=== PATIENT | female | born 1990 | race Hispanic/Latino ===

== ENCOUNTER 2017-11-10 23:13 | Inpatient (IN) | payer OTHER, MEDICAID ==
[~2017-11-10] VITALS: Ht 160 cm; Wt 83.5 kg
[2017-11-10 23:50] LABS: APPEARANCE,URINE Clear (CLEAR); BILIRUBIN,URINE Negative (NEGATIVE); COLOR,URINE Yellow (YELLOW); GLUCOSE, URINE (UA) Negative (NEGATIVE); KETONES,URINE Negative (NEGATIVE); LEUKOCYTE ESTERASE ,URINE Trace (NEGATIVE); NITRATE,URINE Negative (NEGATIVE); OCCULT BLOOD,URINE Negative (NEGATIVE); PH,URINE 6.5 (5.0-8.0); PROTEIN,URINE Negative (NEGATIVE)
[2017-11-11 00:24] LABS: BACTERIA,URINE Rare /HPF (None Seen); MUCUS,URINE Few LPF (None Seen); RBC,URINE None Seen /HPF (0-1); SQUAMOUS EPITHELIAL CELL,UR Moderate /LPF (0-2)
[2017-11-11 01:00] VITALS: BP 129/72
[2017-11-11] MEDS ORDERED: LACTATED RINGERS 1000ML 1,000 ML IV SCH (01:00)
[2017-11-11] MEDS ORDERED: CLINDAMYCIN 900 MG/D5% WATER 50 ML IVPB PRN (01:00)
[2017-11-11 02:23] LABS: HEMATOCRIT 27.3 % (36-48); MEAN CORPUSCULAR HEMOGLOBIN 22.2 pg (27.0-33.0); MEAN CORPUSCULAR HGB CONC 31.8 g/dL (32.0-36.0); MEAN CORPUSCULAR VOLUME 69.7 fL (79-99); NUCLEATED RED BLOOD CELLS 0.4 % (0.0-0.19); PLATELET COUNT (AUTO) 250 K/uL (130-400); RED BLOOD CELL COUNT(AUTO) 3.91 MIL/uL (4.00-5.50); RED CELL DISTRIBUTION WIDTH 18.6 % (11.0-15.5); WHITE BLOOD COUNT (AUTO) 13.5 K/uL (4.8-10.8)
[2017-11-11] MEDS ORDERED: GENTAMICIN SULFATE 240 MG in SODIUM CHLORIDE 0.9% 100 ML IV PRN (04:15)
[2017-11-11] MEDS ORDERED: PREN1TAB89 PO (04:23)
[2017-11-11] MEDS ORDERED: AFRSP NASAL (04:23)
[2017-11-11] MEDS ORDERED: CETI10CA5 PO (04:23)
[2017-11-11] MEDS ORDERED: CLINDAMYCIN PHOSPHATE 150 MG/ML 6ML VIAL IJ ONE (09:00)
[2017-11-11] MEDS ORDERED: OXYTOCIN 10 USP UNITS/ML ONE ×2 (09:36→14:21)
[2017-11-11] MEDS ORDERED: ONDANSETRON HCL 4 MG/2 ML VIAL ONE (09:36)
[2017-11-11] MEDS ORDERED: PHENYLEPHRINE HCL 10 MG/ML 1ML VIAL IV ONE (09:36)
[2017-11-11] MEDS ORDERED: FENTANYL CITRATE PF 50 MCG/1 ML 2ML VIAL ONE (09:41)
[2017-11-11] MEDS ORDERED: DURAMORPH PF1 MG/ML 10ML AMP IV ONE (09:41)
[2017-11-11] MEDS: CALDOLOR 800MG+NS 250ML 250 ML IV SCH ×2 (11:15→19:37)
[2017-11-11] MEDS ORDERED: DiphenhydrAMINE HCL 50 MG/ML VIAL IVP PRN (11:15)
[2017-11-11] MEDS ORDERED: PROMETHAZINE HCL 25 MG/ML 1ML AMPULE IM PRN ×2 (11:15→12:00)
[2017-11-11] MEDS ORDERED: MORPHINE SULFATE 2 MG/ML 1ML SYG IVP PRN (11:15)
[2017-11-11] MEDS ORDERED: ONDANSETRON HCL 4 MG/2 ML 8 MG in SODIUM CHLORIDE 0.9% 50 ML IVP NR (11:15)
[2017-11-11] MEDS ORDERED: NALOXONE HCL 0.4 MG/1 ML ML IVP PRN (11:15)
[2017-11-11] MEDS ORDERED: ONDANSETRON HCL 4 MG/2 ML VIAL IVP PRN ×2 (11:15)
[2017-11-11] MEDS ORDERED: EPHEDRINE SULFATE 50 MG/ML AMPULE IVP PRN (11:15)
[2017-11-11] MEDS ORDERED: METOCLOPRAMIDE 10 MG/2 ML VIAL IVP PRN (11:15)
[2017-11-11] MEDS ORDERED: HYDROCODONE/ACETAMINOPHEN 5/325 MG TAB PO PRN (11:15)
[2017-11-11] MEDS ORDERED: OXYTOCIN-LR 20 UNITS/1000 ML 1,000 ML IV PRN (11:56)
[2017-11-11] MEDS ORDERED: SODIUM CHLORIDE 0.9% 10 ML VIAL IVP PRN (12:00)
[2017-11-11] MEDS ORDERED: DEXTROSE 5 %-0.45 % NACL 1,000 ML IV PRN (12:00)
[2017-11-11] MEDS ORDERED: MEPERIDINE-PF 75 MG/ML SYG IM PRN (12:00)
[2017-11-11 13:53] LABS: RAPID PLASMA REAGIN NONREACTIVE (NONREACTIVE)
[2017-11-11] MEDS ORDERED: LACTATED RINGERS 1000ML 1,000 ML IV ONE (14:21)
[2017-11-11] MEDS ORDERED: MEPERIDINE-PF 25 MG/ML SYG ONE (14:23)
[2017-11-11] MEDS ORDERED: MEPERIDINE-PF 50 MG/ML SYG ONE (14:23)
[2017-11-11 14:49] VITALS: BP 108/73
[2017-11-11] MEDS: HYDROCODONE/ACETAMINOPHEN 5/325 MG TAB PO PRN (17:21)
[2017-11-11 20:00] VITALS: BP 115/71
[2017-11-12] VITALS (7 sets, daily range): BP systolic 110–123; BP diastolic 59–73
[2017-11-12] MEDS: HYDROCODONE/ACETAMINOPHEN 5/325 MG TAB PO PRN ×2 (00:20→07:16)
[2017-11-12] MEDS ORDERED: ACETAMINOPHEN EXTRA STRENGTH 500 MG TABLET PO PRN (02:45)
[2017-11-12] MEDS ORDERED: BISACODYL 10 MG SUPP.RECT RC PRN (02:45)
[2017-11-12] MEDS ORDERED: LANOLIN 30GM OINTMENT TP PRN (02:45)
[2017-11-12] MEDS ORDERED: IBUPROFEN 600 MG TABLET PO PRN (02:45)
[2017-11-12] MEDS ORDERED: SODIUM CHLORIDE 0.9% 10 ML VIAL IVP PRN (02:45)
[2017-11-12] MEDS: CALDOLOR 800MG+NS 250ML 250 ML IV SCH (03:25)
[2017-11-12 06:59] LABS: HEMATOCRIT 24.5 % (36-48); MEAN CORPUSCULAR HEMOGLOBIN 21.7 pg (27.0-33.0); MEAN CORPUSCULAR HGB CONC 31.4 g/dL (32.0-36.0); MEAN CORPUSCULAR VOLUME 68.9 fL (79-99); NUCLEATED RED BLOOD CELLS 0.1 % (0.0-0.19); PLATELET COUNT (AUTO) 234 K/uL (130-400); RED BLOOD CELL COUNT(AUTO) 3.55 MIL/uL (4.00-5.50); RED CELL DISTRIBUTION WIDTH 19.3 % (11.0-15.5)
[2017-11-12] MEDS: DIPH,PERTUSS(ACELL),TET VAC/PF 0.5 ML VIAL IM SCH (07:07)
[2017-11-12] MEDS: SIMETHICONE 80 MG TAB.CHEW PO PRN ×2 (08:42→20:55)
[2017-11-12] MEDS: DOCUSATE SODIUM 100 MG CAP PO SCH ×2 (08:42→20:55)
[2017-11-12] MEDS: IBUPROFEN 100 MG/5 ML SUSP UDCUP PO PRN ×2 (16:14→22:40)
[2017-11-13] MEDS: DIPH,PERTUSS(ACELL),TET VAC/PF 0.5 ML VIAL IM SCH (02:45)
[2017-11-13] MEDS: HYDROCODONE/ACETAMINOPHEN 5/325 MG TAB PO PRN ×3 (03:01→17:26)
[2017-11-13 03:20] VITALS: BP 112/70
[2017-11-13 05:18] LABS: HEPATITIS Bs ANTIGEN SCREEN P Negative (Negative)
[2017-11-13 07:38] VITALS: BP 125/74
[2017-11-13] MEDS: IBUPROFEN 100 MG/5 ML SUSP UDCUP PO PRN ×2 (07:57→14:29)
[2017-11-13] MEDS: DOCUSATE SODIUM 100 MG CAP PO SCH (08:40)
[2017-11-13 11:23] VITALS: BP 123/61
[2017-11-13 15:31] VITALS: BP 124/69
== END 2017-11-13 19:05 | disposition home or self-care (01) | DRG 766 ==
LOC: EDH 23:13 → LDH 23:24 → OBSVTOIN 23:24 → WSH 11-11 14:55
PROVIDERS: ADMIT Obstetrics & Gynecology; ATTEND Obstetrics & Gynecology
PROC: 3E0234Z Introduction of Serum, Toxoid and Vaccine into Muscle, Percutaneous Approach (ICD-10-PCS; 2017-11-11)
PROC: 3E0P3VZ Introduction of Hormone into Female Reproductive, Percutaneous Approach (ICD-10-PCS; 2017-11-11)
PROC: 10D00Z1 Extraction of Products of Conception, Low, Open Approach (ICD-10-PCS; principal; 2017-11-11 09:30)
DX: O34.211 Maternal care for low transverse scar from previous cesarean delivery (principal); Z23 Encounter for immunization; Z37.0 Single live birth; Z3A.38 38 weeks gestation of pregnancy; Z88.1 Allergy status to other antibiotic agents; Z91.013 Allergy to seafood
CPT/HCPCS: 36415; 59510; 81001; 85027; 86592; 86701; 86850; 86900; 86901; 87340; 87390; 90715; A4344; A4450; A4606; J1580; J1741; J2175; J2274; J2370; J2405; J2550; J2590; J3010; J3490; J7120